=== PATIENT | female | born 1960 | race Caucasian/White ===

== ENCOUNTER → 2017-04-17 | Outpatient (CLI) | payer OTHER ==
--- NOTE | 2017-04-17 12:28 | DIAGNOSTIC IMAGING REPORT ---
NECK ULTRASOUND CLINICAL HISTORY: SEBACEOUS CYST COMPARISON STUDY: None. TECHNIQUE: Sonography of the neck at site of palpable abnormality was performed. FINDINGS: Note is made of a 0.5 x 0.4 x 0.2 cm subcutaneous lesion of the anterior left neck, located just to the left of midline. This contains no color flow. This lesion is hypoechoic and represents the palpable abnormality. No additional abnormalities are identified. IMPRESSION: 5 mm subcutaneous hypoechoic abnormality of the left anterior aspect of the neck which represents the palpable abnormality. This contains no color flow. The sonographic appearance is nonspecific but favors a sebaceous cyst. Electronically signed by: Emerson Alvarado M.D. 04/17/2017 12:26 PM Dictated Date/Time: 04/17/2017 12:25 PM
== END | disposition home or self-care (01) ==
LOC: C.ULTR 11:37
PROVIDERS: ATTEND Family Medicine
DX: L72.3 Sebaceous cyst (principal)